=== PATIENT | male | born 1955 | race Caucasian/White ===

== ENCOUNTER → 2023-09-27 08:57 | Outpatient (REF) | payer OTHER, SELFPAY | LOC: RCS 08:57 | PROVIDERS: ATTENDING PHYSICIAN Internal Medicine | DX: R93.1 Abnormal findings on diagnostic imaging of heart and coronary circulation (principal) | CPT/HCPCS: 93017; 93005; 93350 ==

== ENCOUNTER → 2024-06-13 15:36 | Outpatient (REF) | payer OTHER, SELFPAY | LOC: PAVMRI 15:36 | PROVIDERS: ATTENDING PHYSICIAN Internal Medicine | DX: M79.644 Pain in right finger(s) (principal) | CPT/HCPCS: 73218 ==